=== PATIENT | female | born 1980 | race Caucasian/White ===

== ENCOUNTER 2017-11-04 18:26 | Emergency (ER) | payer BC, OTHER ==
[~2017-11-04] VITALS: Ht 162.6 cm; Wt 63.6 kg
[~2017-11-04 18:26] MED LIST: ONDA4TAB7 SL
[2017-11-04 18:28] VITALS: TEMP 37.4; Ht 162.6 cm; Wt 63.6 kg
--- NOTE | 2017-11-04 18:38 | EMERGENCY ROOM VISIT NOTE ---
ED Visit Note First contact with patient: 18:31 CHIEF COMPLAINT: Abdominal pain HISTORY OF PRESENTING ILLNESS: This is a 37-year-old female who presents to the emergency department with complaint of abdominal pain that started yesterday afternoon. She states she initially felt bloated and nauseated, she began to have significantly worsening pain in the middle of the night and has progressively gotten worse throughout today. She states the pain is diffuse throughout the entire abdomen but is much more significant on the left side. She describes the pain as sharp and shooting, constant with intermittent worsening pain, worse with movement and eating, better with rest, 7/10. She has tried Pepto-Bismol, ibuprofen with minimal relief. She has had low-grade fevers of 99-100 with chills off and on, and nausea, she denies any vomiting, diarrhea or constipation, bloody or black stools, and states she had a normal bowel movement today. She denies any urinary symptoms of dysuria, urinary frequency, or urgency. She does note that she was seen at an urgent care prior to coming here and they told her she had blood in her urine. She was also tested for the flu and this was negative. She denies any headaches, neck pain, chest pain, shortness of breath, back pain, abnormal vaginal bleeding or discharge, or rash. REVIEW OF SYSTEMS: A complete 10 point review of systems was reviewed with the patient with pertinent positives and negatives as per history of present illness. All else were negative. PAST MEDICAL HISTORY: Reports history of laparoscopic surgery for an ovarian cyst, no other significant past medical or surgical history. She states that she has an IUD in place and does not get periods. SOCIAL HISTORY: The home. She is a current everyday smoker, admits to occasional alcohol, denies any recreational drugs. ALLERGIES: No known allergies. PHYSICAL EXAM: CONSTITUTIONAL: Pleasant and cooperative. No acute distress. Mildly dehydrated , but otherwise well appearing and well nourished. HEENT: Normocephalic, atraumatic. Pupils equal, round and reactive to light, EOMI. TMs normal. Pharynx normal. Take mucous membranes. NECK: Supple, full active range of motion without discomfort. RESPIRATORY: Clear to auscultation bilaterally with no wheezing, crackles, rhonchi or stridor. Equal expansion bilaterally. CARDIOVASCULAR: Regular rate and rhythm with no murmurs, rubs or gallops. Normal peripheral perfusion. No edema. GASTROINTESTINAL: Soft, moderately tender in the left lower quadrant and left flank, nondistended. No rebound tenderness or guarding. Mild left CVA tenderness. No palpable masses or HSM. Bowel sounds present in all quadrants. MUSCULOSKELETAL: Full range of motion of all joints without discomfort. INTEGUMENTARY: No rash or other significant dermatologic conditions noted. NEUROLOGIC: Alert and oriented X 4 with normal affect. Normal strength and sensation in all 4 extremities. No focal neurologic deficits noted. Normal speech. Normal gait observed. ED COURSE AND MEDICAL DECISION MAKING: CC: Patient presenting with complaint of abdominal pain DIFFERENTIAL DIAGNOSIS: Includes, but not limited to ureteral stone, UTI, pyelonephritis, diverticulitis, intra-abdominal abscess, small bowel obstruction , pancreatitis, appendicitis, ovarian cyst, ovarian torsion, dehydration, gastroenteritis, among others. INTERPRETATION OF LABS: Mild leukocytosis with left shift, no anemia, no significant electrolyte abnormalities, normal renal function, normal liver enzymes and lipase. UA negative for infection or blood, urine negative. IMAGING: CT SCAN OF THE ABDOMEN AND PELVIS WITHOUT IV CONTRAST CLINICAL HISTORY: Generalized abdominal pain. Nausea. Bloating. COMPARISON STUDY: No priors. TECHNIQUE: CT scan of the abdomen and pelvis is performed from the lung bases to the proximal femora. Images are reviewed in the axial, sagittal, and coronal planes. IV contrast was not administered for this examination as per the referring clinician. Note that the examination was performed in suboptimal fashion without oral and IV contrast. A dose lowering technique was utilized adhering to the principles of ALARA. CT DOSE: 338.49 mGy.cm FINDINGS: Lung bases: The heart is normal in size and without pericardial effusion. The lung bases are clear noting dependent atelectasis. Liver: The unenhanced liver is normal in size, contour, and attenuation. There is no intrahepatic biliary ductal dilatation. Gallbladder: Unremarkable. Spleen: Normal in size and attenuation. Pancreas: Unremarkable. Adrenal glands: Unremarkable. Kidneys: The unenhanced kidneys are normal in size and without hydronephrosis. There are no renal calculi identified. There is no evidence of contour deforming renal mass lesion. Abdominal vasculature: The abdominal aorta is normal in course and caliber. Bowel: There is mild colonic diverticulosis. There is focal wall thickening and edema seen involving the descending colon with strandy pericolonic infiltration and fluid. The short segment of involvement favors acute diverticulitis. A short segment colitis could have a similar appearance. There is no evidence of abscess on this unenhanced examination. No bowel obstruction is seen. The appendix is normal as visualized. Peritoneum: There is no intraperitoneal free air or abdominal ascites. There is a fat-containing umbilical hernia. Lymphadenopathy: None. Pelvic viscera: The bladder, uterus, and adnexa are normal as visualized noting an intrauterine device in place. Small ovarian follicles are identified. Free fluid in the cul-de-sac is likely within physiologic limits. Skeletal structures: No lytic or blastic lesions are seen. There are bilateral pars defects with mild disc space narrowing and anterolisthesis at L5-S1. IMPRESSION: 1. Suboptimal examination without oral and IV contrast. 2. There is mild diverticulosis of the left colon. There is a short segment of significant wall thickening and edema identified involving the distal descending colon with surrounding inflammation and fluid. The appearance is most consistent with severe acute diverticulitis. A short segment of colitis could have a similar appearance but is considered less likely. 3. No intraperitoneal free air is identified. No organized fluid collection is seen on this unenhanced examination to suggest abscess. 4. A small volume of free fluid in the cul-de-sac is likely within physiologic limits. 5. Additional findings as above. MEDICATION RECONCILIATION: I attest that I have personally reviewed the patient 's current medication list. INITIAL VITAL SIGNS REVIEW: I reviewed the patient's initial vital signs and interpret them as follows: T: Afebrile; BP: Normotensive; HR: Within normal; RR: Within normal; Pulse Ox: Metastases within normal limits on room air. Blood pressure screening: The patient was found to have normal blood pressure on screening and does not require follow-up for repeat blood pressure check. SUMMARY: Patient was evaluated at bedside, history and physical exam performed. Patient is alert and oriented, no acute distress, resting calmly in the stretcher. Patient has moderate tenderness of the left lower quadrant and left flank on exam. Rest of the abdomen is largely nontender and nondistended. She does appear mildly dehydrated. I did review her records from urgent care visit earlier today, noting hematuria , negative influenza, and negative test. Orders were placed at bedside for labs, UA and urine , IV fluids for hydration, IV Zofran for nausea, CT abdomen/pelvis noncontrast to evaluate for renal stone and other intra-abdominal abnormalities. Patient was offered something for pain, she declined at this time stating she is comfortable. Patient discussed with Dr. Guadalupe, who agrees with my assessment and plan. Labs and imaging reviewed as above, findings consistent with acute diverticulitis. No evidence of abscess formation or bowel perforation on CT. Patient was again offered something for pain, she requested Motrin, this was ordered. Patient has not been vomiting and is able to tolerate oral fluids without difficulty. She was given a dose of Cipro and Flagyl in the ED, and Rx sent to pharmacy. Patient reassessed multiple times throughout ED stay, she states she is feeling improved after IV fluids and Motrin. I discussed results with the patient, and given that she is able to tolerate PO , she is afebrile with stable vitals, and her pain has been controlled, I feel she is stable for discharge home and outpatient treatment. Patient was updated on all results and plan for discharge, she was comfortable with this plan and did prefer to be discharged home. She was strongly encouraged to follow closely with her primary care provider, and was encouraged to seek a colonoscopy when her symptoms have improved. Patient was also given strict return precautions should her symptoms worsen, she verbalized understanding. Patient was discharged home in stable condition and ambulatory. Current/Historical Medications Scheduled Ciprofloxacin Hcl (Cipro), 1 TAB PO BID Metronidazole (Flagyl), 1 TAB PO TID Ondasetron Odt (Zofran Odt), 4 MG SL Q6H Allergies Coded Allergies: No Known Allergies (Verified , 11/04/17) Vital Signs Date Time Temp Pulse Resp B/P (MAP) Pulse Ox O2 Delivery O2 Flow Rate FiO2 11/04/17 20:55 75 20 101/56 100 11/04/17 20:26 75 20 101/56 100 Room Air 11/04/17 18:28 37.4 83 18 117/62 97 Room Air Laboratory Results 11/04/17 18:50 Red Blood Count 4.47, Mean Corpuscular Volume 85.5, Mean Corpuscular Hemoglobin 30.0, Mean Corpuscular Hemoglobin Concent 35.1, Mean Platelet Volume 9.9, Neutrophils (%) (Auto) 71.5, Lymphocytes (%) (Auto) 16.4, Monocytes (%) (Auto) 9.2, Eosinophils (%) (Auto) 2.2, Basophils (%) (Auto) 0.5, Neutrophils # (Auto) 8.68, Lymphocytes # (Auto) 1.99, Monocytes # (Auto) 1.11, Eosinophils # (Auto) 0.27, Basophils # (Auto) 0.06 11/04/17 18:50 Test 11/04/17 18:50 11/04/17 18:55 White Blood Count 12.13 K/uL (4.8-10.8) Red Blood Count 4.47 M/uL (4.2-5.4) Hemoglobin 13.4 g/dL (12.0-16.0) Hematocrit 38.2 % (37-47) Mean Corpuscular Volume 85.5 fL (80-100) Mean Corpuscular Hemoglobin 30.0 pg (25-34) Mean Corpuscular Hemoglobin Concent 35.1 g/dl (32-36) Platelet Count 252 K/uL (130-400) Mean Platelet Volume 9.9 fL (7.4-10.4) Neutrophils (%) (Auto) 71.5 % Lymphocytes (%) (Auto) 16.4 % Monocytes (%) (Auto) 9.2 % Eosinophils (%) (Auto) 2.2 % Basophils (%) (Auto) 0.5 % Neutrophils # (Auto) 8.68 K/uL (1.4-6.5) Lymphocytes # (Auto) 1.99 K/uL (1.2-3.4) Monocytes # (Auto) 1.11 K/uL (0.11-0.59) Eosinophils # (Auto) 0.27 K/uL (0-0.5) Basophils # (Auto) 0.06 K/uL (0-0.2) RDW Standard Deviation 42.5 fL (36.4-46.3) RDW Coefficient of Variation 13.7 % (11.5-14.5) Immature Granulocyte % (Auto) 0.2 % Immature Granulocyte # (Auto) 0.02 K/uL (0.00-0.02) Anion Gap 7.0 mmol/L (3-11) Est Creatinine Clear Calc Drug Dose 80.4 ml/min Estimated GFR () 105.2 Estimated GFR (Non- 90.8 BUN/Creatinine Ratio 8.3 (10-20) Calcium Level 8.7 mg/dl (8.5-10.1) Total Bilirubin 0.6 mg/dl (0.2-1) Direct Bilirubin 0.2 mg/dl (0-0.2) Aspartate Amino Transf (AST/SGOT) 10 U/L (15-37) Alanine Aminotransferase (ALT/SGPT) 17 U/L (12-78) Alkaline Phosphatase 69 U/L (45-117) Total Protein 7.3 gm/dl (6.4-8.2) Albumin 3.5 gm/dl (3.4-5.0) Lipase 106 U/L (73-393) Urine Color YELLOW Urine Appearance CLEAR (CLEAR) Urine pH 5.5 (4.5-7.5) Urine Specific [place] 1.016 (1.000-1.030) Urine Protein NEG (NEG) Urine Glucose (UA) NEG (NEG) Urine Ketones NEG (NEG) Urine Occult Blood NEG (NEG) Urine Nitrite NEG (NEG) Urine Bilirubin NEG (NEG) Urine Urobilinogen NEG (NEG) Urine Leukocyte Esterase TRACE (NEG) Urine WBC (Auto) 1-5 /hpf (0-5) Urine RBC (Auto) 0-4 /hpf (0-4) Urine Hyaline Casts (Auto) 1-5 /lpf (0-5) Urine Epithelial Cells (Auto) >30 /lpf (0-5) Urine Bacteria (Auto) NEG (NEG) Urine Test NEG (NEG) Medications Administered Medications (Trade) Dose Ordered Sig/Jaswinder Route Start Time Stop Time Status Last Admin Dose Admin Sodium Chloride 1,000 ml @ 999 mls/hr Q1H1M STAT IV 11/04/17 18:46 11/04/17 19:46 DC 11/04/17 19:06 999 MLS/HR Ibuprofen (Motrin Tab) 600 mg NOW STAT PO 11/04/17 20:14 11/04/17 20:17 DC 11/04/17 20:27 600 MG Metronidazole (Flagyl Tab) 500 mg NOW STAT PO 11/04/17 20:14 11/04/17 20:17 DC 11/04/17 20:27 500 MG Ciprofloxacin (Cipro Tab) 500 mg NOW STAT PO 11/04/17 20:14 11/04/17 20:17 DC 11/04/17 20:27 500 MG Ondansetron HCl (ZOFRAN ODT 4MG Home Pack) 1 homepack UD ONCE PO 11/04/17 21:00 11/04/17 21:01 DC 11/04/17 21:00 1 HOMEPACK Departure Information Impression Primary Impression: Acute diverticulitis Dispostion Home / Self-Care Condition GOOD Prescriptions Ondasetron Odt (ZOFRAN ODT) 4 Mg Tab 4 MG SL Q6H for Nausea, #6 TAB Prov: Mallory Nowak., [employer] 11/04/17 Metronidazole (FLAGYL) 500 Mg Tab 1 TAB PO TID for 10 Days, #30 TAB Prov: [place],Mallory B., [employer] 11/04/17 Ciprofloxacin Hcl (CIPRO) 500 Mg Tab 1 TAB PO BID for 10 Days, #20 TAB Prov: Mallory Nowak., [employer] 11/04/17 Referrals Carmen Howard PA-C (PCP) Patient Instructions ED Diverticulitis, [facility] Additional Instructions You have been treated in the Emergency Department your abdominal pain. Laboratory results and imaging studies have ruled out any emergent causes for your symptoms which would warrant admission or surgery. Your CT scan shows evidence of acute diverticulitis, which is an infection of your large intestines. You were prescribed Ciprofloxacin and Flagyl to be taken for 10 days. These medications are antibiotics to treat her diverticulitis. All antibiotics have the potential to cause diarrhea. Stop this medication and contact a medical provider if you were to develop any significant adverse side effects including: wheezing, shortness of breath, passing out, vomiting, or a diffuse rash. Always take antibiotics as directed and COMPLETE the ENTIRE course regardless of the improvement of your symptoms. You should also start taking an [id number] probiotic every day. You have been prescribed Zofran to be used as needed for nausea/vomiting. Take as prescribed. For pain control, you can use the following [id number] medicines (if >12 yo): - Regular strength (325mg/tab) Tylenol (acetaminophen) 2 tabs every 4-6 hours as needed. Do not exceed 10 tablets in a 24 hour period. Avoid taking more than 3000 mg of Tylenol per day. This includes any other sources of acetaminophen you may take on a regular basis. - Regular strength (200 mg/tab) Advil (ibuprofen) 3 tabs every 6-8 hours as needed. Do not exceed a dose of 2400 mg per day. Stick with a clear liquid diet for the next few days until your symptoms are improving, then slowly advance to a bland diet, then back to a normal diet Drink plenty of fluids to stay well hydrated. As with any trip to the Emergency Department, you should follow-up with your Primary Care Provider in the next few days to be rechecked. You should also discuss getting scheduled for a colonoscopy with your PCP. Return to the emergency department for worsening abdominal or back pain, worsening nausea/vomiting or unable to keep anything down, blood in your stool, fevers > 101.5, chills or feeling ill, severe dizziness or passing out, or any other concerns. Work Instructions Return To Work: 3 days
[2017-11-04] MEDS ORDERED: SODIUM CHLORIDE 0.9% 1000ML 1,000 ML IV STA (18:46)
[2017-11-04 19:11] LABS: BASO % 0.5 %; BASO ABS # 0.06 K/uL (0-0.2); EOS % 2.2 %; EOS ABS # 0.27 K/uL (0-0.5); HEMATOCRIT 38.2 % (37-47); HEMOGLOBIN 13.4 g/dL (12.0-16.0); IG# 0.02 K/uL (0.00-0.02); LYMPH % 16.4 %; LYMPH ABS # 1.99 K/uL (1.2-3.4); MEAN CELL VOLUME 85.5 fL (80-100); MEAN CORPUSCULAR HGB CONC 35.1 g/dl (32-36); MEAN PLATELET VOLUME 9.9 fL (7.4-10.4); MONO % 9.2 %; MONO ABS # 1.11 K/uL (0.11-0.59); NEUT % 71.5 %; NEUT ABS # 8.68 K/uL (1.4-6.5); PLATELET COUNT 252 K/uL (130-400); RED CELL DISTRIBUTION WIDTH CV 13.7 % (11.5-14.5); RED CELL DISTRIBUTION WIDTH SD 42.5 fL (36.4-46.3); WHITE BLOOD COUNT 12.13 K/uL (4.8-10.8)
[2017-11-04 19:28] LABS: ALBUMIN 3.5 gm/dl (3.4-5.0); CALCIUM 8.7 mg/dl (8.5-10.1); CREATININE 0.82 mg/dl (0.60-1.20); POTASSIUM 3.8 mmol/L (3.5-5.1)
[2017-11-04 19:31] LABS: TOTAL PROTEIN 7.3 gm/dl (6.4-8.2)
--- NOTE | 2017-11-04 19:36 | DIAGNOSTIC IMAGING REPORT ---
CT SCAN OF THE ABDOMEN AND PELVIS WITHOUT IV CONTRAST CLINICAL HISTORY: Generalized abdominal pain. Nausea. Bloating. COMPARISON STUDY: No priors. TECHNIQUE: CT scan of the abdomen and pelvis is performed from the lung bases to the proximal femora. Images are reviewed in the axial, sagittal, and coronal planes. IV contrast was not administered for this examination as per the referring clinician. Note that the examination was performed in suboptimal fashion without oral and IV contrast. A dose lowering technique was utilized adhering to the principles of ALARA. CT DOSE: 338.49 mGy.cm FINDINGS: Lung bases: The heart is normal in size and without pericardial effusion. The lung bases are clear noting dependent atelectasis. Liver: The unenhanced liver is normal in size, contour, and attenuation. There is no intrahepatic biliary ductal dilatation. Gallbladder: Unremarkable. Spleen: Normal in size and attenuation. Pancreas: Unremarkable. Adrenal glands: Unremarkable. Kidneys: The unenhanced kidneys are normal in size and without hydronephrosis. There are no renal calculi identified. There is no evidence of contour deforming renal mass lesion. Abdominal vasculature: The abdominal aorta is normal in course and caliber. Bowel: There is mild colonic diverticulosis. There is focal wall thickening and edema seen involving the descending colon with strandy pericolonic infiltration and fluid. The short segment of involvement favors acute diverticulitis. A short segment colitis could have a similar appearance. There is no evidence of abscess on this unenhanced examination. No bowel obstruction is seen. The appendix is normal as visualized. Peritoneum: There is no intraperitoneal free air or abdominal ascites. There is a fat-containing umbilical hernia. Lymphadenopathy: None. Pelvic viscera: The bladder, uterus, and adnexa are normal as visualized noting an intrauterine device in place. Small ovarian follicles are identified. Free fluid in the cul-de-sac is likely within physiologic limits. Skeletal structures: No lytic or blastic lesions are seen. There are bilateral pars defects with mild disc space narrowing and anterolisthesis at L5-S1. IMPRESSION: 1. Suboptimal examination without oral and IV contrast. 2. There is mild diverticulosis of the left colon. There is a short segment of significant wall thickening and edema identified involving the distal descending colon with surrounding inflammation and fluid. The appearance is most consistent with severe acute diverticulitis. A short segment of colitis could have a similar appearance but is considered less likely. 3. No intraperitoneal free air is identified. No organized fluid collection is seen on this unenhanced examination to suggest abscess. 4. A small volume of free fluid in the cul-de-sac is likely within physiologic limits. 5. Additional findings as above. Electronically signed by: [place]ura Harry M.D. 11/04/2017 7:34 PM Dictated Date/Time: 11/04/2017 7:28 PM
[2017-11-04] MEDS ORDERED: IBUPROFEN 600 MG TAB PO STA (20:14)
[2017-11-04] MEDS ORDERED: METRONIDAZOLE 250 MG TAB PO STA (20:14)
[2017-11-04] MEDS ORDERED: CIPROFLOXACIN 500 MG TAB PO STA (20:14)
[2017-11-04] MEDS ORDERED: METR-162 PO (20:46)
[2017-11-04] MEDS ORDERED: ONDA4TAB10 SL (20:46)
[2017-11-04] MEDS ORDERED: CIPR-255 PO (20:46)
[2017-11-04 20:55] VITALS: BP 101/56; PULSE 75; O2SAT 100
[2017-11-04] MEDS ORDERED: ONDANSETRON HOME PACK 4MG OD TAB PO ONE (21:00)
== END 2017-11-04 20:55 | disposition home or self-care (01) ==
LOC: C.EDB 18:27 → C.EDC 20:55
DX: K57.92 Diverticulitis of intestine, part unspecified, without perforation or abscess without bleeding (principal); E86.0 Dehydration; F17.200 Nicotine dependence, unspecified, uncomplicated